=== PATIENT | male | born 1990 | race Two or more races ===

== ENCOUNTER 2025-04-15 07:03 | Emergency (ER) | payer OTHER, SELFPAY ==
[2025-04-15] VITALS (11 sets, daily range): BP systolic 124–141; BP diastolic 78–98; PULSE 77–123; RESP 14–16; TEMP 36.8; O2SAT 97–99; BMI 30.7
--- NOTE | 2025-04-15 07:10 | HMH.EDGENADL ---
Discharge Plan Disposition Patient Disposition: Xfer Other Referrals Follow up/Referrals: Provider,Referral, MD [Primary Care Provider, Medical] - See instructions Activity Restrictions/Add. Instructions Additional Instructions/Restrictions: Go directly to [facility] emergency department address [address] [id number] so that you can be evaluated by the orthopedic/podiatry surgery team. Clinical Impressions Clinical Impression: Abscess of foot, Type 2 diabetes mellitus Stand Alone Forms Stand Alone Forms: Transfer Record - ED Print Language Print Language: Portuguese Discharge ED Provider: Jennifer Truong General Adult HPI General Chief complaint: Extremity Injury, Lower Stated complaint: Painful swollen knot on top of right foot Time Seen by Provider: 04/15/25 07:10 History of Present Illness HPI narrative: Patient is a 34-year-old with past medical history significant for lack of primary care access presents to the emergency department with a right foot wound. 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 Pain is worsened by putting weight on his foot. Subjective fever and chills started 2 days ago. Patient has not seen a primary care doctor since high school. Denies smoking daily alcohol use or IV drug use. Denies being bit or any trauma. Related Data Allergies Allergy/AdvReac Type Severity Reaction Status Date / Time No Known Allergies Allergy Verified 04/15/25 07:28 [facility] Disclaimer: The information contained in this section may have been updated after the patient was seen, as this information can be updated by other users. Social History Smoking Status: Never smoker alcohol intake: never current occupational status: employed Travel in the last 8 weeks?: Inside the [place] ROS Obtained: Yes All systems reviewed & no additional complaints except as documented Physical Exam General General appearance: alert Chest Chest inspection: Present normal inspection and symmetric chest wall rise Respiratory Respiratory exam: Present normal lung sounds bilaterally; Absent respiratory distress Cardiovascular Cardiovascular exam: Present normal rhythm and tachycardia Abdominal Exam Abdominal exam: Present soft; Absent distention or tenderness Extremities Exam Extremities exam: Present tenderness, edema and other (tense, warmth, erythematous abscess 6 cm x 4 cm dorsum of right foot, intact sensation and capillary refill distal to wound, erythema and swelling extending to ankle) Neurological Exam Neurological exam: Present alert and oriented X3 Medical Decision Making Medical Records Screening: Per USPSTF and CDC recommendations, given the prevalence of disease in our region, it is our hospital?s policy to screen for HIV and viral Hepatitis for all patients aged 18 and over and those with ongoing risk factors. Lucio Inquiry Pt receiving controlled substance: No Vital Signs: 04/15/25 07:14 04/15/25 07:15 04/15/25 07:17 Temperature 98.3 F Temperature Source Oral Pulse Rate 123 H 123 H Pulse Rate [Left] 112 H Respiratory Rate 16 Blood Pressure 141/98 H 135/87 Blood Pressure [Right Arm] 141/98 H Blood Pressure Mean [Right Arm] 112 Blood Pressure Source Blood Pressure Source [Right Arm] Automatic Cuff 02 Sat by Pulse Oximetry 97 98 98 Oxygen Delivery Method Room Air Room Air Room Air 04/15/25 07:18 04/15/25 08:07 04/15/25 09:04 Temperature Temperature Source Pulse Rate 87 98 H 88 Pulse Rate [Left] Respiratory Rate 16 14 Blood Pressure 135/87 133/78 127/88 Blood Pressure [Right Arm] Blood Pressure Mean [Right Arm] Blood Pressure Source Automatic Cuff Automatic Cuff Blood Pressure Source [Right Arm] 02 Sat by Pulse Oximetry 97 98 98 Oxygen Delivery Method Room Air Room Air Room Air 04/15/25 09:05 04/15/25 09:30 04/15/25 10:00 Temperature Temperature Source Pulse Rate 85 77 81 Pulse Rate [Left] Respiratory Rate Blood Pressure 127/88 131/86 135/88 Blood Pressure [Right Arm] Blood Pressure Mean [Right Arm] Blood Pressure Source Blood Pressure Source [Right Arm] 02 Sat by Pulse Oximetry 98 98 97 Oxygen Delivery Method Room Air Room Air 04/15/25 10:30 Temperature Temperature Source Pulse Rate 86 Pulse Rate [Left] Respiratory Rate Blood Pressure 124/84 Blood Pressure [Right Arm] Blood Pressure Mean [Right Arm] Blood Pressure Source Blood Pressure Source [Right Arm] 02 Sat by Pulse Oximetry 99 Oxygen Delivery Method Room Air Lab Data Lab Results 04/15/25 07:33: WBC 11.7 H, RBC 5.12, Hgb 16.4, Hct 45.7, MCV 89.3, MCH 32.0 H, MCHC 35.9 H, RDW 11.2 L, Plt Count 156, MPV 12.1 H, Neut % (Auto) 73.4, Lymph % (Auto) 14.5, [place] % (Auto) 9.9 H, Eos % (Auto) 1.1, Baso % (Auto) 0.6, Neut # (Auto) 8.6 H, Lymph # (Auto) 1.7, [place] # (Auto) 1.2 H, Eos # (Auto) 0.1, Baso # (Auto) 0.1, ESR 22 H, Sodium 133 L, Potassium 3.7, Chloride 100, Carbon Dioxide 20 L, Anion Gap 16.7 H, BUN 16, Creatinine 0.70, Estimated Creat Clear 181, Estimated GFR 129, Est GFR ( Amer) 156, Glucose 428 H*, Hemoglobin A1c 11.0 H, Lactate 2.0, Calcium 8.9, Total Bilirubin 2.4 H, AST 30, ALT 44, Alkaline Phosphatase 147 H, Total Creatine Kinase 78, C-Reactive Protein 185.3 H, Total Protein 8.0, Albumin 4.3, Globulin 3.7 H, Albumin/Globulin Ratio 1.2 04/15/25 08:20: VBG pH 7.31, VBG pCO2 39.2, VBG pO2 44.2 H, VBG HCO3 19.2 L, VBG Total CO2 20.4 L, VBG O2 Saturation 78.2 H, VBG Base Excess -7.1 L, VBG Lactic Acid 2.6 H 04/15/25 08:44: Urine Color Yellow, Urine Appearance Clear, Urine pH 5.5, Ur Specific [place] 1.010, Urine Protein 1+ A, Urine Glucose (UA) 3+, Urine Ketones 3+, Urine Blood Trace-i, Urine Nitrate Negative, Urine Bilirubin Negative, Urine Urobilinogen 1.0, Ur Leukocyte Esterase Negative, Urine RBC 3-5, Urine WBC None, Ur Squamous Epith Cells 3-5, Urine Bacteria None, Fine Granular Casts Occasional 04/15/25 07:33 04/15/25 07:33 Orders (Tests/Meds): ED MEDICATIONS Discontinued Medications Generic Name Dose Route Start Last Admin Trade Name Freq PRN Reason Stop Dose Admin Lactated Ringer's 2,590 mls @ 1,295 mls/hr 04/15/25 07:23 04/15/25 07:33 Lactated Ringer's 1000 Ml Bag 30 ml/kg infuse over 2 hr (2590 ml) 04/15/25 09:22 1,295 mls/hr IV Administration .Q2H ONE Protocol Piperacillin Sod/Tazobactam 100 mls @ 200 mls/hr 04/15/25 07:23 04/15/25 07:35 Sod 4.5 gm/ Sodium Chloride IV 04/15/25 07:52 200 mls/hr ONCE ONE Administration Vancomycin/PEG/NADA/Lysine/Water 1.75 gm in 350 mls @ 175 mls/hr 04/15/25 08:30 04/15/25 08:24 Vancomycin 1.75gm/350ml (Peg) Premix IV 04/15/25 10:29 175 mls/hr ONCE ONE Administration Iopamidol 120 ml 04/15/25 08:08 04/15/25 08:09 Iopamidol-370 (76%);100ml Bottle IV 04/15/25 08:09 120 ml ONCE ONE Administration Miscellaneous 1 each 04/15/25 07:30 04/15/25 08:24 Vancomycin Consult Request NOTAPPLIC 05/15/25 07:29 1 each CONSULT PHARMACY [facility]A Administration Sodium Chloride 10 ml 04/15/25 08:08 04/15/25 08:09 Sodium Chloride 0.9% 10ml Syr (Rad Only) IV 04/15/25 08:09 10 ml ONCE ONE Administration Sodium Chloride 100 ml 04/15/25 08:08 04/15/25 08:09 0.9 % Sodium Chloride 50 Ml Vial IV 04/15/25 08:09 100 ml ONCE ONE Administration ORDERS Category Date Time Status CT foot RT w con Stat Cat Scan 04/15/25 07:28 Completed POCUS Point of Care (ER Only) Stat Exams 04/15/25 07:14 Completed XR foot RT min 3V Stat Exams 04/15/25 07:23 Completed CBC w/Auto Diff [Complete Blood Count Auto Diff] Stat Lab 04/15/25 07:33 Completed CMP [Comprehensive Metabolic Panel] Stat Lab 04/15/25 07:33 Completed CRP [C-Reactive Protein] Stat Lab 04/15/25 07:33 Completed Creatine Kinase Stat Lab 04/15/25 07:33 Completed ESR [Erythrocyte Sedimentation Rate] Stat Lab 04/15/25 07:33 Completed Hemoglobin A1C Stat Lab 04/15/25 07:33 Completed Lactic Acid Stat Lab 04/15/25 07:33 Completed UA [Urinalysis and Microscopic] Stat Lab 04/15/25 08:44 Completed Blood Culture Stat Micro 04/15/25 07:36 Received Wound Culture and Gram Stain Stat Micro 04/15/25 10:25 Received VBG [Venous Blood Gas] Stat RT 04/15/25 08:20 Completed Medical Decision Narrative: In summary, this 34-year-old male presents to the emergency department today with foot pain. On initial evaluation patient is normotensive tachycardic afebrile saturating appropriately on room air in no acute distress. Differential diagnosis includes but is not limited to abscess, osteomyelitis, bacteremia, undiagnosed diabetes, myositis, necrotizing soft tissue infection or necrotizing fasciitis, rhabdo myelitis compartment syndrome. Based on these concerns, I ordered CBC CMP ESR CRP CK x-rays and CT scan w iv contrast of the foot blood cultures. Patient received 30 cc/kg fluid bolus, vancomycin and Zosyn for treatment. Labs personally reviewed demonstrate hyperglycemia, AGAP 16, leukocytosis, ESR 22, normal pH, ketonuria. XR personally interpreted demonstrates no cortical destruction. CT imaging personally interpreted demonstrate 5 x 2 x 2 cm abscess on the dorsal lateral aspect of the right foot I had an interactive discussion Dr. Wise with [facility] orthopedic surgery who recommended transfer to higher level of care . I had an interactive conversation with Dr. Contreras who agreed to have patient transferred for right foot abscess in setting of uncontrolled new diagnosis of diabetes. Patient transferred to [facility] for evaluation by orthopedic surgery Social determinants of health include inadequate access to primary care. Procedures Limited Ultrasound Indication:: Foot swelling Views:: Indication: Soft tissue pain Identified structures: Right foot Location: Right foot Findings: Abscess 5 x 2 x 2 cm Impression: Abscess Images were saved to the permanent archive. The study was technically adequate. Soft tissue CPT codes Neck: 46820-61 Upper extremity: 15485-21 Axilla: 38488-18 Chest wall: 36858-99 Breast: 07497-40 (complete), 22896-39-[RT/LT] (limited) Upper back: 12158-11 Abdominal wall: 63073-00 Pelvic wall: 56275-20 Lower extremity: 87491-91 Other soft tissue: 87127-96 This study was performed by me, and I personally interpreted all images/videos. Based on my clinical judgment, these images were [adequate/inadequate] and [did/did not] necessitate further imaging. Critical Care Critical Care Time Critical Care Time: No
--- NOTE | 2025-04-15 07:23 | XR_ITS ---
PROCEDURE INFORMATION: Exam: XR Right Foot Exam date and time: 04/15/2025 7:38 AM Age: 34 years old Clinical indication: Swelling, leg or foot and other: Open wound; PT states that his work boot rubbed a spot on his foot and now it is swollen, red, and open. Dorsal surface metatarsal area; Additional info: Concern osteo TECHNIQUE: Imaging protocol: Radiologic exam of the right foot. Views: 3 or more views. COMPARISON: No relevant prior studies available. FINDINGS: Bones/joints: Normal. Soft tissues: Normal. IMPRESSION: No acute findings.
--- NOTE | 2025-04-15 07:28 | CT_ITS ---
PROCEDURE INFORMATION: Exam: CT Right Lower Extremity With Contrast, Foot Exam date and time: 04/15/2025 8:00 AM Age: 34 years old Clinical indication: Swelling, leg or foot and other: Open sore; PT states that work boot rubbed a spot on foot and now it is swollen, red and open sore. Dorsal surface, metatarsal area; Additional info: Abscess/osteo TECHNIQUE: Imaging protocol: CT of the right lower extremity with intravenous contrast was performed. Exam focused on the foot. Radiation optimization: All CT scans at this facility use at least one of these dose optimization techniques: automated exposure control; mA and/or kV adjustment per patient size (includes targeted exams where dose is matched to clinical indication); or iterative reconstruction. Contrast material: ISOVUE; Contrast volume: 120 ml; Contrast route: IV; COMPARISON: CR XR FOOT RT MIN 3V 04/15/2025 7:38 AM FINDINGS: Bones/joints: No evidence of erosive changes to suggest osteomyelitis. MRI is more sensitive for osteomyelitis than CT. Soft tissues: Fluid collection with surrounding fat stranding and soft tissue thickening measuring 5 x 2 x 1.6 cm in the dorsolateral soft tissues of the right foot likely represents an abscess. Smaller fluid collection is seen lateral to the 5th metatarsophalangeal joint. IMPRESSION: No evidence of erosive changes to suggest osteomyelitis. MRI is more sensitive for osteomyelitis than CT. Fluid collection with surrounding fat stranding and soft tissue thickening in the dorsolateral soft tissues of the right foot likely represents an abscess. Smaller fluid collection is seen lateral to the 5th metatarsophalangeal joint.
[2025-04-15] MEDS: PIPERACILLIN/TAZO 4.5 GM in 0.9 % SODIUM CHLORIDE 100 ML IV (07:35)
[2025-04-15 07:50] LABS: Basophils # 0.1 K/mm3 (0-0.2); Basophils % 0.6 % (0.1-2.0); Eosinophils # 0.1 Kmm3 (0.0-0.4); Eosinophils % 1.1 % (0.1-12.0); Hematocrit 45.7 % (42.0-52.0); Hemoglobin 16.4 g/dL (14.1-18.0); Immature Granulocytes # 0.06 10^3uL; Immature Granulocytes % 0.5 %; Lymphocytes # 1.7 K/mm3 (0.7-4.5); Lymphocytes % 14.5 % (10-50); Mean Corpuscular HGB Conc 35.9 g/dL (31.8-35.4); Mean Corpuscular Volume 89.3 fl (80-94); Mean Platelet Volume 12.1 fl (7.4-10.4); Monocytes # 1.2 K/mm3 (0.1-1.0); Monocytes % 9.9 % (1.7-9.3); Neutrophils # 8.6 K/mm3 (1.8-7.8); Neutrophils % 73.4 % (37.0-80.0); Nucleated Red Blood Cells # 0 10^3/uL; Nucleated Red Blood Cells % 0 %; Platelet Count 156 K/mm3 (142-424); Red Blood Count 5.12 M/mm3 (4.60-6.20); Red Cell Distribution Width 11.2 % (11.5-17.5); Red Cell Distribution Width-SD 36.2 fL; White Blood Count 11.7 K/mm3 (4.8-10.8)
--- NOTE | 2025-04-15 07:52 | PC.NURSE ---
pt going for CT at this time
--- NOTE | 2025-04-15 08:05 | PC.NURSE ---
Pt in radiology
--- NOTE | 2025-04-15 08:07 | PC.NURSE ---
Pt return from CT
[2025-04-15] MEDS: IOPAMIDOL-370 (76%);100ML BOTTLE 120 ML IV (08:09)
[2025-04-15] MEDS: SODIUM CHLORIDE 0.9% 10ML SYR (RAD ONLY) 10 ML IV (08:09)
[2025-04-15] MEDS: 0.9 % SODIUM CHLORIDE 50 ML VIAL 100 ML IV (08:09)
[2025-04-15 08:10] LABS: Albumin Level 4.3 g/dl (3.5-5.0); Chloride 100 mmol/L (98-107); Potassium 3.7 mmoL/L (3.5-5.1); Sodium 133 mmol/L (136-145)
[2025-04-15 08:13] LABS: Alanine Aminotransferase 44 U/L (12-78); Albumin/Globulin Ratio 1.2 (1.1-1.8); Alkaline Phosphatase 147 U/L (38-126); Anion Gap 16.7 mEq/L (5-15); Aspartate Amino Transferase 30 U/L (17-59); Bilirubin,Total 2.4 mg/dl (0.2-1.3); Blood Urea Nitrogen 16 mg/dl (9-20); Calcium 8.9 mg/dl (8.4-10.2); Carbon Dioxide 20 mmol/L (22.0-30.0); Creatine Kinase 78 U/L (55-170); Creatinine Clearance Estimated 181 mL/min (50-200); Estimated Glomerular Filt Rate 129 ml/min (>60); GFR (African American) 156 ML/MIN (>60); Globulin 3.7 g/dL (1.3-3.2)
[2025-04-15 08:16] LABS: Glucose 428 mg/dl (74-100)
[2025-04-15 08:19] LABS: C-Reactive Protein 185.3 mg/L (0-4)
--- NOTE | 2025-04-15 08:21 | PC.NURSE ---
I called pharmacy to obtain Vanc dosing, s/w Yosvany Zamudio, and dosed at 1750mg. He will prepare it for ER
[2025-04-15 08:24] LABS: Erythrocyte Sedimentation Rate 22 mm/hr (0-15)
[2025-04-15] MEDS: VANCOMYCIN/WATER FOR INJ (PEG) 1.75 GM/350 ML PIGGYBACK IV (08:24)
[2025-04-15] MEDS: VANCOMYCIN CONSULT REQUEST 1 EACH NOTAPPLIC (08:24)
[2025-04-15 08:32] LABS: VBG Base Excess -7.1 mmol/L (-2.4-2.3); VBG HCO3 19.2 mmol/L (23-30); VBG Oxygen Saturation 78.2 % (50-70); VBG PCO2 39.2 mmol/L (35-51); VBG PH 7.31 mmol/L (7.31-7.41); VBG PO2 44.2 mmol/L (28-40); VBG Total CO2 20.4 mmol/L (23-27)
[2025-04-15 08:34] LABS: Lactate Venous 2.6 mmol/L (0.4-2.0)
--- NOTE | 2025-04-15 08:45 | PC.NURSE ---
Urine sent to lab
[2025-04-15 08:48] LABS: Microscopic, Urine URINE MICROSCOPIC (MICROSCOPIC)
[2025-04-15 09:12] LABS: Appearance,Urine CLEAR (Clear); Bilirubin,Urine Negative (Negative); Blood, Urine TRACE-I (Negative); Color,Urine YELLOW (Yellow); Glucose,Urine (UA) 3+ (Negative); Ketones,Urine 3+ (Negative); Leukocyte Esterase,Urine Negative (Negative); Nitrate,Urine Negative (Negative); PH,Urine 5.5 (5.0-8.5); Protein,Urine 1+ (Negative)
[2025-04-15 09:33] LABS: Fine Granular Casts,Urine Occasional #/lpf (0)
--- NOTE | 2025-04-15 10:48 | PC.NURSE ---
called [facility] for ortho transfer at [phone]
--- NOTE | 2025-04-15 10:54 | PC.NURSE ---
DENNIS YOUNG spoke with ER for ER to ER transfer with Dr. Contreras accepting.
[2025-04-15 12:34] LABS: Reflex Lactic Add Lactic Reflex
--- NOTE | 2025-04-15 14:35 | PC.NURSE ---
Called [facility] and s/w Charge Nurse Reina, gave meds & abx times.
--- NOTE | 2025-04-15 18:53 | PC.NURSE ---
Pharmacy @ [facility] Called to obtain ABX and medication times.
--- NOTE | 2025-04-20 14:14 | PC.NURSE ---
I faxed the pts wound culture results to [facility] as the pt was transferred there.
== END 2025-04-15 11:16 | disposition other institution (70) ==
PROVIDERS: Emergency Provider Student in an Organized Health Care Education/Training Program
DX: L02.611 Cutaneous abscess of right foot (principal); R50.9 Fever, unspecified; E11.9 Type 2 diabetes mellitus without complications
CPT/HCPCS: 73630; 73701; 80053; 81001; 82550; 82803; 83036; 83605; 85025; 85651; 86140; 87040; 87070; 87077; 87186; 87205; 96365; 96366; 96367; 99285; J2543; J3372; J7120; Q9967